=== PATIENT | female | born 1950 | race Caucasian/White ===

== ENCOUNTER 2018-02-10 22:45 | Emergency (ER) | payer OTHER ==
[~2018-02-10] VITALS: Ht 162.6 cm; Wt 66.7 kg
--- OUTSIDE RECORDS SUMMARY | 2018-02-10 22:48 | XMS REPORT | Clinical Summary ---
Author Author [facility] Organization [facility] Address Unknown Phone Unavailable Care Team Providers Care Hr Leader Name Role Phone Kim Peterson MD PCP Allergies Active Allergy Reactions Severity Noted Date Comments Aspirin, Buffered 03/08/2017 Current Medications Prescription Sig. Disp. Refills Start End Date Status Date sulfamethoxazole-trimetho Take 20 mL by mouth 2 280 mL 0 03/08/20 prim (BACTRIM) 200-40 (two) times a day for 7 17 17 mg/5 mL suspension days. Active Problems Not on file Encounters Date Type Specialty Care Team Description 03/08/2017 Emergency Emergency Medicine Marycruz Masters MD Acute cystitis with hematuria (Primary Dx) after 02/09/2017 Social History Tobacco Use Types Packs/Day Years Used Date Never Smoker Alcohol Use Drinks/Week oz/Week Comments No Sex Assigned at Date Recorded Not on file Last Filed Vital Signs Vital Sign Reading Time Taken Blood Pressure 124/55 03/08/2017 9:15 AM CDT Pulse 80 03/08/2017 9:15 AM CDT Temperature 36.8 C (98.2 F) 03/08/2017 9:15 AM CDT Respiratory Rate 17 03/08/2017 9:15 AM CDT Oxygen Saturation 97% 03/08/2017 9:15 AM CDT Inhaled Oxygen - - Concentration Weight - - Height 163.8 cm (5' 4.5") 03/08/2017 9:15 AM CDT Body Mass Index - - Plan of Treatment Not on file Results * Urinalysis screen and microscopy, with reflex to culture (03/08/2017 9:28 AM) Component Value Ref Range Specimen site Clean catch Color, UA Yellow Appearance, UA Clear Specific gravity, UA >1.030 1.001 - 1.035 pH, UA 5.5 5.0 - 8.5 Protein, UA 2+ (A) Negative Glucose, UA Negative Negative Ketones, UA 1+ (A) Negative Bilirubin, UA Positive@UBIL (A) Negative Blood, UA Moderate (A) Negative Nitrite, UA Negative Negative Urobilinogen, UA 1.0 <2.0 Leukocyte esterase, UA Negative Negative Epithelial cells, UA few /HPF WBC, UA 0-5 0 - 4 /HPF RBC, UA 0-5 0 - 2 /HPF Bacteria, UA none seen None seen Yeast, UA None seen Yeast with pseudohyphae, None seen UA Specimen Performing Laboratory Urine [facility] GENOM[facility] MEDIC[facility] [id number] [place] [address] after 02/09/2017 Insurance Payer Benefit Subscriber ID Type Phone Address Plan / Group [employer] [facility]xxxxxxxx [facility]
[2018-02-10 23:27] LABS: BASOPHILS % 0.5 % (0.0-1.0); BILIRUBIN,URINE 1+ (NEGATIVE); COLOR,URINE YELLOW (YELLOW); EOSINOPHILS # (AUTO) 0.5 (0.0-0.4); EOSINOPHILS % 5.5 % (0.0-6.0); HEMATOCRIT 33.9 % (34.2-44.1); HEMOGLOBIN 10.8 g/dL (12.0-16.0); LEUKOCYTE ESTERASE ,URINE 1+ (NEGATIVE); LYMPHOCYTES # (AUTO) 3.6 (1.0-3.2); LYMPHOCYTES % 41.9 % (18.0-39.1); MEAN CORPUSCULAR HEMOGLOBIN 28.2 pg (28-32); MEAN CORPUSCULAR HGB CONC 31.9 g/dL (31-35); MEAN CORPUSCULAR VOLUME 88.5 fL (81-99); MONOCYTES # (AUTO) 0.9 (0.2-0.8); NEUTROPHILS # (AUTO) 3.6 (2.1-6.9); PLATELET COUNT 232 x10e3/uL (140-360); RED BLOOD COUNT 3.83 x10e6/uL (3.6-5.1); RED CELL DISTRIBUTION WIDTH 14.9 % (11.7-14.4)
[2018-02-10 23:32] LABS: CLARITY,URINE SL CLOUDY (CLEAR); NITRITE,URINE NEGATIVE (NEGATIVE)
[2018-02-10 23:33] LABS: KETONES,URINE NEGATIVE (NEGATIVE); PROTEIN,URINE DIPSTICK NEGATIVE (NEGATIVE); URINE UROBILINOGEN 0.2 mg/dL (0.2 - 1)
[2018-02-10 23:37] LABS: INR 1.04; PARTIAL THROMBOPLASTIN TIME 26.7 seconds (23.8-35.5); PROTHROMBIN TIME 12.8 seconds (11.9-14.5)
[2018-02-10 23:41] LABS: BACTERIA,URINE MODERATE /HPF; EPITHELIAL CELLS,URINE FEW /LPF; MUCUS,URINE MANY (RARE)
[2018-02-10 23:45] LABS: ALANINE AMINOTRANSFERASE 8 IU/L (0-55); ALBUMIN 3.6 g/dL (3.5-5.0); ALKALINE PHOSPHATASE 64 IU/L (40-150); AMYLASE 129 U/L (25-125); ANION GAP 13.9 mmol/L (8-16); BLOOD UREA NITROGEN 10 mg/dL (7-26); BUN/CREATININE RATIO 12 (6-25); CALCIUM 9.4 mg/dL (8.4-10.2); CARBON DIOXIDE 27 mmol/L (22-29); CHLORIDE 106 mmol/L (98-107); CREATINE KINASE 85 IU/L (29-168); CREATININE, SERUM 0.81 mg/dL (0.57-1.11); EST GLOMERULAR FILTRATION RATE > 60 ML/MIN (60-); GLUCOSE 89 mg/dL (74-118); LIPASE 68 U/L (8-78); POTASSIUM 3.9 mmol/L (3.5-5.1); SODIUM 143 mmol/L (136-145)
--- NOTE | 2018-02-10 23:52 | Diagnostic Imaging Report ---
CHEST SINGLE (PORTABLE), 02/10/2018 10:46 PM Technique: CHEST SINGLE (PORTABLE) Comparison: None available. Clinical history: Left chest wall pain Findings: Heart/mediastinum: Prominent cardiac silhouette likely accentuated by portable technique. Lungs/pleural spaces: No consolidation or edema. No effusion or pneumothorax. Impression: 1. Lines/Tubes: None 2. No acute abnormality. Signed by: Dr Ember Hirsch MD on 02/10/2018 11:49 PM
--- NOTE | 2018-02-11 01:50 | Diagnostic Imaging Report ---
EXAM: CT CHEST W DATE: 02/11/2018 12:11 AM INDICATION: Chest pain COMPARISON: None TECHNIQUE: Multidetector CT scanning of the chest was performed. Coronal and sagittal multiplanar reformations were obtained. IV Contrast: 63 ml Isovue 370/300 FINDINGS: LUNGS AND PLEURA: Mild bibasilar groundglass and linear opacities, likely atelectasis. Nonspecific 5 mm right middle lobe nodule. No effusions or pneumothorax. HEART, MEDIASTINUM, VESSELS: Borderline heart size. No pericardial effusion. No adenopathy. No evidence of acute pulmonary embolism to the segmental level. Main pulmonary artery is normal in caliber, 2.4 cm. UPPER ABDOMEN: Postsurgical changes are noted about the stomach. Fluid is seen in the esophagus with distal esophageal wall thickening, which may be related to esophagitis/reflux. MUSCULOSKELETAL: Thoracic spine and shoulder degenerative changes. IMPRESSION: 1. No evidence of acute pulmonary embolism. 2. Findings which may be related to esophagitis and/or reflux. 3. Nonspecific 5 mm right middle lobe nodule. Consider 12 month follow-up if the patient is at high risk for lung malignancy. Otherwise no follow-up necessary. Signed by: Dr Ember Hirsch MD on 02/11/2018 1:46 AM
[2018-02-11 02:03] VITALS: BP 107/62
[2018-02-11] MEDS ORDERED: SODIUM CHLORIDE 0.9% 50ML 50 ML ONE (03:33)
[2018-02-11] MEDS ORDERED: IOPAMIDOL 370 MG/ML 200 ML INFUS..BTL INJ ONE (03:33)
== END 2018-02-11 02:15 | disposition home or self-care (01) ==
LOC: ER 22:45
DX: R10.13 Epigastric pain (principal); R10.12 Left upper quadrant pain; N30.90 Cystitis, unspecified without hematuria; K21.9 Gastro-esophageal reflux disease without esophagitis; E78.5 Hyperlipidemia, unspecified; F41.9 Anxiety disorder, unspecified
CPT/HCPCS: 36415; 71045; 71260; 80053; 81001; 82150; 82550; 82553; 83690; 84484; 85025; 85379; 85610; 85730; 93005; 99284; Q9967

== ENCOUNTER → 2021-08-04 | Day surgery (SDC) | payer MEDICARE ==
[2021-07-27 09:15] LABS: BASOPHILS % 0.7 % (0.0-1.0); EOSINOPHILS # (AUTO) 0.2 (0.0-0.4); EOSINOPHILS % 3.8 % (0.0-6.0); HEMATOCRIT 37.3 % (34.2-44.1); HEMOGLOBIN 11.2 g/dL (12.0-16.0); LYMPHOCYTES % 33.7 % (18.0-39.1); MEAN CORPUSCULAR HEMOGLOBIN 28.6 pg (28-32); MEAN CORPUSCULAR VOLUME 95.2 fL (81-99); MONOCYTES # (AUTO) 0.7 (0.2-0.8); MONOCYTES % 11.8 % (4.4-11.3); NEUTROPHILS # (AUTO) 2.9 (2.1-6.9); NEUTROPHILS % 49.8 % (38.7-80.0); PLATELET COUNT 241 x10e3/uL (140-360); RED BLOOD COUNT 3.92 x10e6/uL (3.6-5.1); RED CELL DISTRIBUTION WIDTH 14.4 % (11.7-14.4)
[~2021-08-04] MED LIST: ACETAMINOPHEN-1 EAC3 PO; ATIVAN0.5 MG PO; BUPIVACAINE HCL 0.5% INJ 30 ML VIAL INJ ONE; CRESTOR10 MG PO; DEXAMETHASONE SOD PHOS INJ 4 MG/ML SDV ONE; EPHEDRINE SULFATE INJ 50 MG/ML VIAL ONE; FLUDROCORTISON0.1 MG PO; LEXAPRO20 MG PO; LIDOCAINE HCL 2% LOCAL INJ 5 ML SDV VIAL INJ ONE; MIDODRINE HCL10 MG PO; MUPIROCIN 2% OINT 22 GM TUBE ONE; ONDANSETRON HCL INJ 2MG/ML 2ML 2 MG/ML VIAL ONE; PLAVIX75 MG PO; PROPOFOL IV EMULSION 10 MG/ML 20 ML VIAL ONE; SEVOFLURANE INHAL SOLN 250 ML PEN BTL ONE; SODIUM CHLORIDE 0.9% 50ML 50 ML ONE; VITAMIN B-121000 MCG INJ
[2021-08-04 08:40] VITALS: BP 110/56
== END | disposition home or self-care (01) ==
LOC: OR 05:15
PROVIDERS: ATTEND Plastic Surgery
DX: M72.0 Palmar fascial fibromatosis [Dupuytren] (principal); R00.1 Bradycardia, unspecified; I95.9 Hypotension, unspecified; E78.5 Hyperlipidemia, unspecified; I10 Essential (primary) hypertension; K21.9 Gastro-esophageal reflux disease without esophagitis; F41.9 Anxiety disorder, unspecified; Z88.6 Allergy status to analgesic agent; Z01.810 Encounter for preprocedural cardiovascular examination; Z01.812 Encounter for preprocedural laboratory examination; Z01.818 Encounter for other preprocedural examination; Z20.822 Contact with and (suspected) exposure to COVID-19; Z79.02 Long term (current) use of antithrombotics/antiplatelets
CPT/HCPCS: 26123; 36415; 71046; 85025; 88305; 93005; J0690; J1100; J2001; J2405; J2704; U0002 ×2